=== PATIENT | female | born 1975 ===

== ENCOUNTER 2025-02-25 12:58 | Outpatient (AMB) | payer OTHER, SELFPAY ==
[2025-02-25 13:05] VITALS: BP 210/108; PULSE 85; RESP 18; O2SAT 96; BMI 29.1
--- NOTE | 2025-02-25 13:05 | A.OFFPC_ITS ---
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 Required: No Accompanied by: Self / Same As Patient Allergies No Known Allergies Allergy (Verified 02/25/25 13:13) Medication List - Last Reconciled 02/25/25 by Gopal Sloares MD albuterol sulfate 90 mcg/actuation (Ventolin HFA) 2 puffs inhalation Q6H PRN Tobacco use date assessed: 02/25/25 Dental Screening Dental Screen Date: 02/25/25 Did you have a dental visit in the last 12 months?: No Did you have a dental problem in the last 6 months where you did not have access to dental care?: No Was dental information given to patient?: No HPI HPI Comments History of Present Illness Details 49-year-old female with PMH of HTN, Asth ma vs COPD, TUD presenting to [facility] primary care after not seeing a doctor for approximately 15 years. She recently visited a walk-in clinic for shortness of breath and wheezing, where her blood pressure was found to be extremely high, prompting an ER visit. At the ER, her blood pressure was recorded as 210/140 mmHg, and she was given a prescription for a blood pressure medication, which she believes was amlodipine 5 mg. She ran out of this medication about a month ago and has not been taking it since. 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 She also experiences wheezing while at rest. She has an asthma inhaler (albuterol) which she uses as needed, mostly at work. She denies a prior official diagnosis of asthma. The patient smokes approximately three cigarettes a day, having cut down from a previous higher amount. She reports blurry vision and acknowledges needing glasses. Her family history may be positive for breast or ovarian cancer, but she is not aware of any family history of colon cancer. [facility] Medical History (Updated 02/25/25 @ 13:52 by Gopal Solares MD) Hypertension Social History Alcohol intake: current Patient Tobacco Use Status: Current everyday Tobacco user Substance Use Type: Marijuana Current occupational status: employed Cognitive needs: No Hearing needs: No Vision needs: Yes Questionnaire PHQ-9 Over the last 2 weeks, how often have you been bothered by any of the following problems? 1. Little interest or pleasure in doing things: not at all 2. Feeling down, depressed, or hopeless: not at all 3. Trouble falling or staying asleep, or sleeping too much: not at all 4. Feeling tired or having little energy: not at all 5. Poor appetite or overeating: not at all 6. Feeling bad about yourself - or that you are a failure or have let yourself or your family down: not at all 7. Trouble concentrating on things, such as reading the newspaper or watching television: not at all 8. Moving or speaking so slowly that other people could have noticed. Or the opposite - being so fidgety or restless that you have been moving around a lot more than usual: not at all 9. Thoughts that you would be better off or of hurting yourself in some way: not at all Total score: 0 Source: Developed by Drs. Garfield Marti, Marline Barrera, Joel Jacques and colleagues, with an educational kate from [employer]. Thrive Questionnaire Date Thrive assessed: 02/25/25 I am a: Patient What is your living situation today?: I have a steady place to live Within the past 12 months, did the food you bought not last and you didn't have the money to get more?: Sometimes True Within the past 12 months, did you worry whether your food would run out before you got money to buy more?: Sometimes True Do you have trouble paying for medicines?: No Do you have trouble getting transportation to medical appointments?: Yes Do you have trouble paying your heating and electricity bill?: No Do you have trouble taking care of your child, family member or friend?: No Do you have trouble with day-to-day activities such as bathing, preparing meals, shopping, managing finances, etc.?: No Are you currently unemployed and looking for a job?: No Are you interested in more education?: No Please select the resources that you would like help with: Food and Transportation Currently or been in a relationship where the following occur: No concerns reported THRIVE Score: 3 AUDIT C Alcohol Use Questionnaire (AUDIT-C) 1. How often do you have a drink containing alcohol?: Monthly or less 2. How many drinks containing alcohol do you have on a typical day when you are drinking?: 1 or 2 3. How often do you have six or more drinks on one occasion?: Never Total Score: 1 GRISELDA-7 AMB Questionnaire GRISELDA-7 Date GRISEDLA - 7 assessed: 02/25/25 Feeling nervous, anxious, or on edge: 0 = Not at all Not being able to stop or control worryin = Not at all Worrying too much about different things: 0 = Not at all Trouble relaxin = Not at all Being so restless that it is hard to sit still: 0 = Not at all Becoming easily annoyed or irritable: 2 = More than half the days Feeling afraid as if something awful might happen: 0 = Not at all Total GRISELDA-7 score (0-4 normal; 5-9 mild; 10-14 moderate; 15-21 severe): 2 Source: Developed by Drs. Garfield Marti, Marline Barrera, Joel Jacques and colleagues, with an educational kate from [employer]. Review of Systems Const Details: per HPI. Physical exam (Primary Care) Vital Signs: Last Vital Signs Pulse 85 02/25/25 13:05 Resp 18 02/25/25 13:05 BP 170/110 H 02/25/25 13:30 Pulse Ox 96 02/25/25 13:05 Oxygen Delivery Method Room Air 02/25/25 13:05 BMI result Body Mass Index 29.1 Tobacco/Smoking Status: Tobacco use Status Tobacco use date assessed 02/25/25 02/25/25 13:21 Patient Tobacco Use Status Current everyday Tobacco 02/25/25 13:21 PHQ-9: PHQ-9 Score PHQ-9: Total score 0 02/25/25 13:31 Thrive Assessment: Date of Thrive Assessment Date Thrive assessed 02/25/25 02/25/25 13:21 Currently or been in a relationship where the following occur: No concerns reported Const Other: Pertinent findings are in BOLD GENERAL APPEARANCE NAD, activity normal for age, well developed/ well nourished, no cyanosis, pallor, or diaphoresis. EYES lids/conjunctiva normal. EARS/NOSE/THROAT Mucous membranes moist, nares normal, lips/teeth normal uvula midline without oral pharyngeal erythema, exudate or swelling TMs normal bilaterally. No lymphangitis/lymphedema. HEAD/NECK normocephalic atraumatic, no facial trauma, neck is supple. RESPIRATORY respiratory effort normal, speaks in full sentences, no tripod position, no accessory muscle use. Lungs clear to auscultation without rhonchi, rales. Wheezing present bilaterally. CARDIAC Regular rate and rhythm, no edema. ABDOMINAL Soft, ND/NT. No evidence of fluid wave. No pulsatile masses on exam, rebound tenderness, Foreman sign or pain over Mcburney's point. MUSCLES/EXTREMITIES No abnormal range of motion, no swelling. SKIN Warm, pink and dry. No rashes, dermatoses, petechiae or lesions. NEUROLOGICAL Speech is clear and appropriate. Normal level of consciousness. Gait and coordination are normal. 5/5 strength in all extremities. PSYCH Normal mood and affect. Judgement/competence is appropriate Immunizations Boostrix Tdap 2.5 Lf unit-8 mcg-5 Lf/0.5 mL intramuscular syringe Performing Provider: Gopal Solares MD [facility] Administered by: DESMOND Sampson on 02/25/25 13:50 Dose Route Admin Location Dispensed Lot Number Expiration Date [facility] [employer]man 0.5 mL IM Left Deltoid 0.5 mL [id number] 09/08/27 [id number] [employer] Total Dispensed Waste 0.5 mL 0 % VIS Given Date VIS Provided VIS Publication Date 02/25/25 Single Vaccine 20 Eligibility Eligibility Date Funding Source Not [facility] Eligible 02/25/25 Private Coding Level of Care Code New Pt Level 3 (16995) New Pt Prev Care 40-64y(61617) Diagnoses Healthcare maintenance Z00.00 Asthma, unspecified asthma severity, unspecified whether complicated, unspecified whether persistent J45.909 Asthma severity: unspecified severity Asthma persistence: unspecified Asthma complication type: unspecified Hypertension, unspecified type I10 Hypertension type: unspecified Tobacco use disorder F17.200 Time Spent (min) 30 Assessment & Plan Assessment & Plan (1) Healthcare maintenance: Code(s): Z00.00 - Encounter for general adult medical examination without abnormal findings Category: Medical Plan: CBC, CMP, Lipid panel, A1C, TSH w T4, vit D. Ordered. Shingles 2 doses when >50 yo. At 50. COVID: two doses. Delined. Tdap: Today. Pneumococcal: >50 yo. 18-49 with CKD, lung disease, weakened immune system, Heart disease, DM, cochlear implant. At 50. Flu vaccine: Declined. Colonoscopy: 45-75. Cologuard. AAA: 65 -75. At [address]. CT lun - 80. At 50. HPV: Ob-healthcare management consultant referral. HIV: Ordered. HCV: Ordered. Dexa: At 65. Mammogram: Ordered. (2) Asthma: Code(s): J45.909 - Unspecified asthma, uncomplicated Category: Medical Qualifiers: Asthma severity: unspecified severity Asthma persistence: unspecified Asthma complication type: unspecified Qualified Code(s): J45.909 - Unspecified asthma, uncomplicated Plan: - The patient presents with wheezing and shortness of breath, exacerbated by exertion and smoke at work. - To manage these symptoms, a daily maintenance inhaler, fluticasone/salmeterol (Advair Discus) 100/50 mcg, will be initiated at one inhalation twice daily. - She should continue to use her albuterol inhaler as needed for acute symptoms. - Follow up in two weeks to assess her respiratory status. (3) Hypertension: Code(s): I10 - Essential (primary) hypertension Category: Medical Qualifiers: Hypertension type: unspecified Qualified Code(s): I10 - Essential (primary) hypertension Plan: - The patient's blood pressure today is 210/108. And on repeat was 170/110 mmHg. - As she is asymptomatic without headache, chest pain, or acute shortness of breath, an emergency department visit is not currently indicated. - Will restart antihypertensive therapy with amlodipine 10 mg daily, an increase from her previous 5 mg dose. - A 90-day supply with refills will be prescribed. - Follow-up in two weeks to re-check blood pressure. (4) Tobacco use disorder: Code(s): F17.200 - Nicotine dependence, unspecified, uncomplicated Category: Medical Plan: Patient currently smokes 3 cigarettes per day. She cut down on smoking recently. Congratulated the patient on cutting down cigarette smoking. Encouraged further efforts. Plan I have reviewed the patient's history and current complaints. I discussed her significantly elevated blood pressure of 170/110 mmHg and explained that because she is currently asymptomatic, we can manage it in the outpatient setting without an immediate need for an ER visit. I am starting her on amlodipine 10 mg daily. Regarding her wheezing and shortness of breath, I am starting a daily controller inhaler, Advair Discus, to be used twice a day, and she will continue her albuterol inhaler for rescue. I have also ordered a comprehensive set of baseline labs, placed referrals to [facility], and for a mammogram. We discussed colon cancer screening options, and she opted for a Cologuard test. I provided counseling on smoking cessation and dietary modifications, emphasizing reduced intake of sugar and processed foods. A tetanus vaccine will be administered today. I will see her for a follow-up visit in two weeks to check her blood pressure and respiratory status. Orders: Orders Comprehensive Met. Panel Today Z00.00 - Encounter for general adult medical examination without abnormal findings Hemoglobin A1c Today Z00.00 - Encounter for general adult medical examination without abnormal findings Lipid Panel Today Z00.00 - Encounter for general adult medical examination without abnormal findings TSH reflex Free T4 Today Z00.00 - Encounter for general adult medical examination without abnormal findings Vitamin D 25-OH Total Today Z00.00 - Encounter for general adult medical examination without abnormal findings MM screening mammo BI Today Z12.31 - Encounter for screening mammogram for malignant neoplasm of breast Complete Blood Count no Diff Today Z00.00 - Encounter for general adult medical examination without abnormal findings HIV Ab/Ag Today Z00.00 - Encounter for general adult medical examination without abnormal findings Hepatitis C Antibody Reflex Today Z00.00 - Encounter for general adult medical examination without abnormal findings TDaP Immunization Today Z23 - Encounter for immunization Referrals Cologuard Test Z12.11 - Encounter for screening for malignant neoplasm of colon, Z12.12 - Encounter for screening for malignant neoplasm of rectum [facility] Referral Z00.00 - Encounter for general adult medical examination without abnormal findings Medications: New amlodipine 10 mg PO DAILY 90 tabs 4RF fluticasone propion-salmeterol 100-50 mcg/dose (Advair Diskus) 1 inh inhalation BID 60 ea 3RF
[2025-02-25 13:30] VITALS: BP 170/110
== END 2025-02-25 13:52 | disposition home or self-care (01) ==
LOC: HO.HMCH 12:59
PROVIDERS: PCP Internal Medicine; Visit Provider Internal Medicine
DX: Z00.00 Encounter for general adult medical examination without abnormal findings (principal); J45.909 Unspecified asthma, uncomplicated; I10 Essential (primary) hypertension; F17.200 Nicotine dependence, unspecified, uncomplicated; Z23 Encounter for immunization

== ENCOUNTER 2025-03-08 14:14 | Outpatient (AMB) | payer OTHER, SELFPAY ==
[2025-03-08 14:27] VITALS: BP 130/86; PULSE 84; O2SAT 96; BMI 30.2
--- NOTE | 2025-03-08 14:27 | MHC.PC.OV ---
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 Accompanied by: Self / Same As Patient Allergies No Known Allergies Allergy (Verified 03/08/25 14:28) Medication List - Last Reconciled 03/08/25 by Gopal Solares MD albuterol sulfate 90 mcg/actuation (Ventolin HFA) 2 puffs inhalation Q6H PRN amlodipine 10 mg PO DAILY cholecalciferol (vitamin D3) 250 mcg PO QWEEK fluticasone propion-salmeterol 100-50 mcg/dose (Advair Diskus) 1 inh inhalation BID Tobacco use date assessed: 03/08/25 Dental Screening Dental Screen Date: 03/08/25 Did you have a dental visit in the last 12 months?: No Did you have a dental problem in the last 6 months where you did not have access to dental care?: No Was dental information given to patient?: Patient has dentist HPI HPI Comments History of Present Illness Details The patient is a 49 year old female with PMH of Asthma, HTN, vit D deficiency, presenting for a follow-up visit for asthma and HTN. The patient was previously started on amlodipine 10 mg for hypertension, with a prior reading of 170/110. Her blood pressure today has improved to 130/86 mmHg, and she reports no side effects from the medication. Regarding her respiratory status, she had bilateral wheezing last time she was seen in our clinic. She was started on Advair Diskus 100-50 mcg during her most recent visit. She reports her breathing is better, she no longer hears wheezing, and can now breathe without coughing. She uses her albuterol rescue inhaler as needed, particularly at work due to smoke exposure. She reports snoring loudly, talking in her sleep, and making weird noises, with her breathing described as all over the place . Her partner has noted that she seems to be trying to catch her breath during sleep, and the patient herself has woken up feeling like she is trying to catch her breath, which she attributes to sleep apnea. She has reduced her smoking from half a pack per day to two cigarettes per day and is trying to quit completely. Recent labs from February 25 were good, with the exception of low vitamin D. She is currently taking two pills of vitamin D once weekly for a 12-week course. Hepatitis C and HIV tests were negative. For health maintenance, she received a Cologuard test kit in the mail, which she has completed and sent back. [facility] Medical History (Updated 03/08/25 @ 14:41 by Gopal Solares MD) Hypertension Social History Housing: Other Alcohol intake: current Patient Tobacco Use Status: Current everyday Tobacco user Substance Use Type: Marijuana service: No Current occupational status: employed Cognitive needs: No Hearing needs: No Vision needs: Yes Questionnaire PHQ-9 Over the last 2 weeks, how often have you been bothered by any of the following problems? 1. Little interest or pleasure in doing things: not at all 2. Feeling down, depressed, or hopeless: not at all 3. Trouble falling or staying asleep, or sleeping too much: not at all 4. Feeling tired or having little energy: not at all 5. Poor appetite or overeating: not at all 6. Feeling bad about yourself - or that you are a failure or have let yourself or your family down: not at all 7. Trouble concentrating on things, such as reading the newspaper or watching television: not at all 8. Moving or speaking so slowly that other people could have noticed. Or the opposite - being so fidgety or restless that you have been moving around a lot more than usual: not at all 9. Thoughts that you would be better off or of hurting yourself in some way: not at all Total score: 0 Source: Developed by Drs. Garfield Marti, Marline Barrera, Joel Jacques and colleagues, with an educational kate from [employer]. Thrive Questionnaire Date Thrive assessed: 03/08/25 I am a: Patient What is your living situation today?: I have a steady place to live Within the past 12 months, did the food you bought not last and you didn't have the money to get more?: Sometimes True Within the past 12 months, did you worry whether your food would run out before you got money to buy more?: Sometimes True Do you have trouble paying for medicines?: No Do you have trouble getting transportation to medical appointments?: Yes Do you have trouble paying your heating and electricity bill?: No Do you have trouble taking care of your child, family member or friend?: No Do you have trouble with day-to-day activities such as bathing, preparing meals, shopping, managing finances, etc.?: No Are you currently unemployed and looking for a job?: No Are you interested in more education?: No Currently or been in a relationship where the following occur: No concerns reported THRIVE Score: 3 AUDIT C Alcohol Use Questionnaire (AUDIT-C) 1. How often do you have a drink containing alcohol?: Monthly or less 2. How many drinks containing alcohol do you have on a typical day when you are drinking?: 1 or 2 3. How often do you have six or more drinks on one occasion?: Never Total Score: 1 GRISELDA-7 AMB Questionnaire GRISELDA-7 Date GRISELDA - 7 assessed: 03/08/25 Feeling nervous, anxious, or on edge: 0 = Not at all Not being able to stop or control worryin = Not at all Worrying too much about different things: 0 = Not at all Trouble relaxin = Not at all Being so restless that it is hard to sit still: 0 = Not at all Becoming easily annoyed or irritable: 2 = More than half the days Feeling afraid as if something awful might happen: 0 = Not at all Total GRISELDA-7 score (0-4 normal; 5-9 mild; 10-14 moderate; 15-21 severe): 2 Source: Developed by Drs. Garfield Marti, Marline Barrera, Joel Jacques and colleagues, with an educational kate from [employer]. Review of Systems Const Details: As per HPI. Physical exam (Primary Care) Vital Signs: Last Vital Signs Pulse 84 03/08/25 14:27 BP 130/86 03/08/25 14:27 Pulse Ox 96 03/08/25 14:27 Oxygen Delivery Method Room Air 03/08/25 14:27 BMI result Body Mass Index 30.2 Tobacco/Smoking Status: Tobacco use Status Tobacco use date assessed 03/08/25 03/08/25 14:29 Patient Tobacco Use Status Current everyday Tobacco 03/08/25 14:29 PHQ-9: PHQ-9 Score PHQ-9: Total score 0 03/08/25 14:29 Thrive Assessment: Date of Thrive Assessment Date Thrive assessed 03/08/25 03/08/25 14:29 Currently or been in a relationship where the following occur: No concerns reported Const Other: Pertinent findings are in BOLD GENERAL APPEARANCE NAD, activity normal for age, well developed/ well nourished, no cyanosis, pallor, or diaphoresis. EYES lids/conjunctiva normal. EARS/NOSE/THROAT Mucous membranes moist, nares normal, lips/teeth normal uvula midline without oral pharyngeal erythema, exudate or swelling TMs normal bilaterally. No lymphangitis/lymphedema. HEAD/NECK normocephalic atraumatic, no facial trauma, neck is supple. RESPIRATORY respiratory effort normal, speaks in full sentences, no tripod position, no accessory muscle use. Lungs clear to auscultation without rhonchi, wheezes, rales CARDIAC Regular rate and rhythm, no edema. ABDOMINAL Soft, ND/NT. No evidence of fluid wave. No pulsatile masses on exam, rebound tenderness, Foreman sign or pain over Mcburney's point. MUSCLES/EXTREMITIES No abnormal range of motion, no swelling. SKIN Warm, pink and dry. No rashes, dermatoses, petechiae or lesions. NEUROLOGICAL Speech is clear and appropriate. Normal level of consciousness. Gait and coordination are normal. 5/5 strength in all extremities. PSYCH Normal mood and affect. Judgement/competence is appropriate Coding Level of Care Code Est Pt Level 4 (51371) Diagnoses Snoring R06.83 Hypertension, unspecified type I10 Hypertension type: unspecified Asthma, unspecified asthma severity, unspecified whether complicated, unspecified whether persistent J45.909 Asthma severity: unspecified severity Asthma persistence: unspecified Asthma complication type: unspecified Vitamin D deficiency E55.9 Time Spent (min) 30 Assessment & Plan Assessment & Plan (1) Snoring: Code(s): R06.83 - Snoring Category: Medical Plan: - The patient reports loud snoring and episodes of gasping for breath during sleep, which are suggestive of sleep apnea. - A referral will be made to Sleep Medicine for a sleep study to confirm the diagnosis. - Discussed that treatment with a CPAP machine may be ordered if sleep apnea is confirmed, which could also help her blood pressure. (2) Hypertension: Code(s): I10 - Essential (primary) hypertension Category: Medical Qualifiers: Hypertension type: unspecified Qualified Code(s): I10 - Essential (primary) hypertension Plan: - The patient's blood pressure has improved to 130/86 mmHg on amlodipine. - She reports no issues with the medication. - The plan is to continue the current dose of amlodipine 10 mg. (3) Asthma: Code(s): J45.909 - Unspecified asthma, uncomplicated Category: Medical Qualifiers: Asthma severity: unspecified severity Asthma persistence: unspecified Asthma complication type: unspecified Qualified Code(s): J45.909 - Unspecified asthma, uncomplicated Plan: - The patient's breathing has improved with the use of an inhaler, Advair, and wheezing has resolved. - The plan is to continue the current maintenance inhaler, advair. - A new prescription for an albuterol rescue inhaler will be sent for as-needed use, particularly for symptoms at work. (4) Vitamin D deficiency: Code(s): E55.9 - Vitamin D deficiency, unspecified Category: Medical Plan: - The patient is currently on a 12-week course of vitamin D, taking two pills once a week. - The plan is to repeat vitamin D levels after she completes the course to assess the need for maintenance therapy. Plan I reviewed the patient's progress on her current medications for hypertension and asthma. We discussed that her blood pressure and breathing have improved significantly, and we will continue her current regimen of amlodipine and Advair, with a new prescription for an albuterol rescue inhaler. I also informed her that her recent lab results were good, except for a vitamin D deficiency, which she is treating. We will recheck her levels after she completes the 12-week course. We discussed her symptoms of loud snoring and waking up gasping for air, which are highly suspicious for sleep apnea. I explained that a sleep study is needed for diagnosis and that treatment with a CPAP machine would likely resolve her symptoms and could also help her blood pressure. She agreed to a referral to Sleep Medicine. I praised her for reducing her smoking and encouraged her to quit completely. We agreed on a follow-up appointment in 11 months for her next annual physical, provided everything remains stable. Orders: Referrals Sleep Medicine Referral R06.83 - Snoring Medications: New albuterol sulfate 90 mcg/actuation (Ventolin HFA) 2 puffs inhalation Q6H PRN 8.5 grams 3RF shortness of breath or wheezing
== END 2025-03-08 14:46 | disposition home or self-care (01) ==
LOC: HO.HMCH 14:15
PROVIDERS: PCP Internal Medicine; Visit Provider Internal Medicine
DX: R06.83 Snoring (principal); I10 Essential (primary) hypertension; J45.909 Unspecified asthma, uncomplicated; E55.9 Vitamin D deficiency, unspecified

== ENCOUNTER → 2025-03-08 14:14 | Outpatient (BNVA) | payer OTHER, SELFPAY | PROVIDERS: Visit Provider Internal Medicine | DX: R06.83 Snoring (principal); I10 Essential (primary) hypertension; J45.909 Unspecified asthma, uncomplicated; E55.9 Vitamin D deficiency, unspecified | CPT/HCPCS: 99212 ==